=== PATIENT | male | born 1950 | race Caucasian/White ===

== ENCOUNTER 2019-07-28 20:35 | Emergency (ER) | payer OTHER ==
[~2019-07-28] VITALS: Ht 172.7 cm; Wt 97.5 kg
[2019-07-28] MEDS ORDERED: ANDROGEL2.5 GM (20:52)
[2019-07-28] MEDS ORDERED: AMARYL4 MG PO (20:53)
[2019-07-28] MEDS ORDERED: VITAMIN D2000 UNIT PO (20:53)
[2019-07-28] MEDS ORDERED: LIPITOR 20 MG T20 M1 PO (20:53)
[2019-07-28] MEDS ORDERED: VICTOZA0.6 MG/0.1 SUBQ (20:54)
[2019-07-28] MEDS ORDERED: SYNTHROID50 MCG PO (20:54)
[2019-07-28] MEDS ORDERED: LANTUS100 UNIT/M SUBQ (20:55)
[2019-07-28] MEDS ORDERED: TRAMADOL 50 MG50 MG PO (20:55)
[2019-07-28] MEDS ORDERED: CALCIUM 600 +1 EAC1 PO (20:55)
[2019-07-28] MEDS ORDERED: MEDROLDOSEPACK PO (23:07)
[2019-07-28] MEDS ORDERED: NORCO 5-325 TA1 EAC1 PO (23:07)
[2019-07-28 23:27] VITALS: BP 172/86
== END 2019-07-28 23:30 | disposition home or self-care (01) ==
LOC: M.ERS 20:35
DX: M47.897 Other spondylosis, lumbosacral region (principal); Z88.8 Allergy status to other drugs, medicaments and biological substances

== ENCOUNTER → 2019-09-14 | Outpatient (CLI) | payer OTHER ==
[~2019-09-14] MED LIST: AMARYL4 MG PO; ANDROGEL2.5 GM; CALCIUM 600 +1 EAC1 PO; LANTUS100 UNIT/M SUBQ; LIPITOR 20 MG T20 M1 PO; MEDROLDOSEPACK PO; NORCO 5-325 TA1 EAC1 PO; SYNTHROID50 MCG PO; TRAMADOL 50 MG50 MG PO; VICTOZA0.6 MG/0.1 SUBQ; VITAMIN D2000 UNIT PO
== END ==
LOC: M.RAD 10:29
DX: M47.816 Spondylosis without myelopathy or radiculopathy, lumbar region (principal); M25.78 Osteophyte, vertebrae; M51.37 Other intervertebral disc degeneration, lumbosacral region; M48.061 Spinal stenosis, lumbar region without neurogenic claudication; M47.814 Spondylosis without myelopathy or radiculopathy, thoracic region; M54.31 Sciatica, right side; M16.0 Bilateral primary osteoarthritis of hip; M21.851 Other specified acquired deformities of right thigh

== ENCOUNTER → 2020-04-05 | Outpatient (CLI) | payer OTHER | LOC: M.RAD 08:25 | DX: M47.812 Spondylosis without myelopathy or radiculopathy, cervical region (principal); R29.890 Loss of height ==

== ENCOUNTER → 2020-05-24 | Outpatient (CLI) | payer OTHER | LOC: M.CT 05-21 13:41 | PROVIDERS: ATTEND Internal Medicine | DX: I67.82 Cerebral ischemia (principal); I70.8 Atherosclerosis of other arteries; M25.78 Osteophyte, vertebrae; R42 Dizziness and giddiness; M48.02 Spinal stenosis, cervical region; R26.2 Difficulty in walking, not elsewhere classified ==

== ENCOUNTER 2020-10-01 12:14 | Emergency (ER) | payer OTHER ==
[~2020-10-01] VITALS: Ht 170.2 cm; Wt 95.3 kg
[2020-10-01] MEDS ORDERED: MULTIVITAMINS1 EAC7 PO (12:25)
[2020-10-01] MEDS ORDERED: LISINOPRIL-HCT1 EAC2 PO (12:26)
[2020-10-01] MEDS ORDERED: PRAVACHOL 20 MG20 M1 PO (12:26)
[2020-10-01] MEDS ORDERED: BASAGLAR K100 UNIT/1 SUBQ (12:26)
[2020-10-01] MEDS ORDERED: NABUMETONE 500500 M2 PO (12:26)
[2020-10-01] MEDS ORDERED: IPRATROPIU0.2 MG/1 M INH (12:27)
[2020-10-01] MEDS ORDERED: VICTOZA0.6 MG/0.1 (12:27)
[2020-10-01] MEDS ORDERED: LEVO-T75 MCG PO (12:27)
[2020-10-01 12:40] LABS: ABSOLUTE EOSINOPHILS 0.3 thou/uL (0.0-0.7); ABSOLUTE MONOCYTES 0.5 thou/uL (0.0-1.2); ABSOLUTE NEUTROPHILS 3.7 thou/uL (1.6-8.1); BASOPHILS 0.7 %; EOSINOPHILS 5.1 %; HEMATOCRIT 47.5 % (42.0-52.0); HEMOGLOBIN 16.2 gm/dL (14.0-18.0); LYMPHOCYTES 18.1 %; MCH 29.6 pg (26.0-34.0); MCHC 34.2 g/dL (28.0-37.0); MCV 86.5 fL (80.0-100.0); MONOCYTES 9.5 %; MPV 6.9 fl. (7.2-11.1); NUCLEATED RBCS 0 /100WBC; PLATELET COUNT* 158 thou/uL (150-400); POLYS 66.6 %; RBC 5.49 mil/uL (4.50-6.00); RDW-CV 14.4 % (10.5-14.5); WBC 5.6 thou/uL (4.0-11.0)
[2020-10-01 12:49] LABS: APTT 23.6 Seconds (25.0-31.3); PROTIME 11.1 Seconds (9.20-11.50)
[2020-10-01 12:57] LABS: CALCIUM 8.9 mg/dL (8.5-10.1); CREATININE 1.2 mg/dL (0.6-1.3); POTASSIUM 3.9 mmol/L (3.5-5.1)
[2020-10-01 13:04] LABS: ALBUMIN 3.9 g/dL (3.4-5.0); CK-MB MASS 3.2 ng/mL (<0.5-3.6); MAGNESIUM 1.6 mg/dL (1.8-2.4); TOTAL BILIRUBIN 1.5 mg/dL (<0.1-1.0); TOTAL PROTEIN 7.8 g/dL (6.4-8.2)
[2020-10-01] MEDS ORDERED: HYDROCHLOROTHIA25 M2 PO (15:04)
[2020-10-01] MEDS ORDERED: NORVASC5 MG PO (15:04)
[2020-10-01 15:26] VITALS: BP 162/101
--- NOTE | 2020-10-01 17:15 | EKG ---
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: J : 1950 Requested By: Alvarez Almeida Order Number: [id number] MD: Frakn Vazquez Measurements Intervals [place] Rate: 86 P: -12 [place]: 236 QRS: -36 QRSD: 89 T: 72 QT: 352 QTc: 421 Interpretive Statements Sinus rhythm Prolonged [place] interval Left axis deviation RSR' in V1 or V2, right VCD or RVH Baseline wander in lead(s) V5 No previous ECG available for comparison Electronically Signed On 10-01-2020 17:15:20 CAPACITY PLANNING ENGINEER by Frank Vazquez [email or web address] <ELECTRONICALLY SIGNED> By: Frank Vazquez MD, FACC 10/01/20 1715 1236 1236 Frank Vazquez MD, FACC /EPI
== END 2020-10-01 15:25 | disposition home or self-care (01) ==
LOC: M.ERS 12:14
PROVIDERS: Family Medicine
DX: I10 Essential (primary) hypertension (principal); R42 Dizziness and giddiness; Z79.899 Other long term (current) drug therapy; Z79.4 Long term (current) use of insulin; Z88.8 Allergy status to other drugs, medicaments and biological substances

== ENCOUNTER 2020-11-05 13:28 | Emergency (ER) | payer OTHER ==
[~2020-11-05] VITALS: Ht 167.6 cm; Wt 93.9 kg
[~2020-11-05 13:28] MED LIST changes: +BASAGLAR K100 UNIT/1 SUBQ; +HYDROCHLOROTHIA25 M2 PO; +IPRATROPIU0.2 MG/1 M INH; +LEVO-T75 MCG PO; +LISINOPRIL-HCT1 EAC2 PO; +MULTIVITAMINS1 EAC7 PO; +NABUMETONE 500500 M2 PO; +NORVASC5 MG PO; +PRAVACHOL 20 MG20 M1 PO; +VICTOZA0.6 MG/0.1
[2020-11-05 14:09] LABS: ABSOLUTE BASOPHILS 0.1 thou/uL (0.0-0.2); ABSOLUTE EOSINOPHILS 0.4 thou/uL (0.0-0.7); ABSOLUTE LYMPHOCYTES 1.2 thou/uL (0.8-5.3); ABSOLUTE MONOCYTES 0.5 thou/uL (0.0-1.2); ABSOLUTE NEUTROPHILS 3.7 thou/uL (1.6-8.1); EOSINOPHILS 6.2 %; HEMATOCRIT 44.2 % (42.0-52.0); HEMOGLOBIN 15.2 gm/dL (14.0-18.0); MCH 29.1 pg (26.0-34.0); MCHC 34.4 g/dL (28.0-37.0); MCV 84.6 fL (80.0-100.0); MONOCYTES 9.3 %; MPV 7.3 fl. (7.2-11.1); NUCLEATED RBCS 0 /100WBC; PLATELET COUNT* 146 thou/uL (150-400); POLYS 62.5 %; RBC 5.22 mil/uL (4.50-6.00); RDW-CV 14.7 % (10.5-14.5); WBC 5.9 thou/uL (4.0-11.0)
[2020-11-05 14:14] LABS: CALCIUM 9.1 mg/dL (8.5-10.1); CREATININE 1.3 mg/dL (0.6-1.3); POTASSIUM 3.4 mmol/L (3.5-5.1)
[2020-11-05 14:16] LABS: PROTIME 10.9 Seconds (9.20-11.50)
[2020-11-05 14:19] LABS: ALBUMIN 3.6 g/dL (3.4-5.0); TOTAL PROTEIN 7.8 g/dL (6.4-8.2)
[2020-11-05] MEDS ORDERED: VALIUM5 MG PO (15:49)
--- NOTE | 2020-11-05 16:48 | EKG ---
[place] [address] ELECTROCARDIOGRAM REPORT Name: NARA NELSON Room: [facility]#: [id number] Admission: 11/05/20 Attend Phys: Discharge: Date of : 46 Date of Service: 11/05/20 1339 Report #: [id number] THIS REPORT FOR: //name// [facility] ED Test Date: 2020-11-05 Test Time: 13:39:22 Pat Name: NARA NELSON Department: Room: Gender: Hoe Runner: DUTCH : 1950 Requested By: Izzy Martinez Order Number: [id number] MD: Frank Vazquez Measurements Intervals [place] Rate: 82 P: 17 [place]: 238 QRS: -31 QRSD: 86 T: 74 QT: 357 QTc: 417 Interpretive Statements Sinus rhythm Prolonged [place] interval Abnormal R-wave progression, early transition Left ventricular hypertrophy Compared to ECG 10/01/2020 12:36:44 Left ventricular hypertrophy now present Left-axis deviation no longer present Right ventricular hypertrophy no longer present Electronically Signed On 11-05-2020 16:48:17 SHIFT SUPERVISOR RN by Frank Vazquez [email or web address] <ELECTRONICALLY SIGNED> By: Frank Vazquez MD, FACC 11/05/20 1648 1339 1339 Frank Vazquez MD, FAC /EPI
[2020-11-05 16:53] VITALS: BP 170/100
== END 2020-11-05 16:54 | disposition home or self-care (01) ==
LOC: M.ERS 13:28
PROVIDERS: Personal Emergency Response Attendant
DX: S01.112A Laceration without foreign body of left eyelid and periocular area, initial encounter (principal); S16.1XXA Strain of muscle, fascia and tendon at neck level, initial encounter; S60.511A Abrasion of right hand, initial encounter; S80.211A Abrasion, right knee, initial encounter; Z20.828 Contact with and (suspected) exposure to other viral communicable diseases; Z88.8 Allergy status to other drugs, medicaments and biological substances; W22.8XXA Striking against or struck by other objects, initial encounter; Y93.89 Activity, other specified; Y92.89 Other specified places as the place of occurrence of the external cause; Y99.8 Other external cause status

== ENCOUNTER 2021-10-20 18:46 | Emergency (ER) | payer OTHER ==
[~2021-10-20] VITALS: Ht 167.6 cm; Wt 90.7 kg
[~2021-10-20 18:46] MED LIST changes: +VALIUM5 MG PO
[2021-10-20 20:20] LABS: ABSOLUTE BASOPHILS 0.1 thou/uL (0.0-0.2); ABSOLUTE EOSINOPHILS 0.4 thou/uL (0.0-0.7); ABSOLUTE LYMPHOCYTES 1.1 thou/uL (0.8-5.3); ABSOLUTE MONOCYTES 0.5 thou/uL (0.0-1.2); ABSOLUTE NEUTROPHILS 2.8 thou/uL (1.6-8.1); BASOPHILS 1.5 %; EOSINOPHILS 8.6 %; HEMATOCRIT 43.4 % (42.0-52.0); HEMOGLOBIN 15.1 gm/dL (14.0-18.0); LYMPHOCYTES 22.8 %; MCH 29.6 pg (26.0-34.0); MCHC 34.8 g/dL (28.0-37.0); MCV 85.1 fL (80.0-100.0); MONOCYTES 10.5 %; MPV 7.9 fl. (7.2-11.1); NUCLEATED RBCS 0 /100WBC; PLATELET COUNT* 189 thou/uL (150-400); POLYS 56.6 %; RDW-CV 14.2 % (10.5-14.5)
[2021-10-20 20:26] LABS: CALCIUM 9.7 mg/dL (8.5-10.1); CREATININE 1.1 mg/dL (0.6-1.3); POTASSIUM 3.5 mmol/L (3.5-5.1)
[2021-10-20 20:30] LABS: MAGNESIUM 1.8 mg/dL (1.8-2.4); TOTAL BILIRUBIN 1.2 mg/dL (<0.1-1.0); TOTAL PROTEIN 8.2 g/dL (6.4-8.2)
[2021-10-20 20:53] VITALS: BP 126/76
--- NOTE | 2021-10-21 12:17 | EKG ---
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 Manager: PR : 1950 Requested By: Emily Michael Order Number: [id number] MD: Edvin Colon Measurements Intervals [place] Rate: 78 P: -58 [place]: 275 QRS: -26 QRSD: 93 T: 61 QT: 367 QTc: 419 Interpretive Statements Sinus or ectopic atrial rhythm Prolonged [place] interval Borderline left axis deviation Abnormal R-wave progression, early transition Baseline wander in lead(s) I,III,aVL Compared to ECG 11/05/2020 13:39:22 Left ventricular hypertrophy no longer present Electronically Signed On 10-21-2021 12:17:23 ANALYTICAL SCIENCES DIRECTOR by Edvin Colon [email or web address] <ELECTRONICALLY SIGNED> By: Edvin Colon MD, FACC 10/21/21 1217 56 56 Edvin Colon MD, FAC /EPI
== END 2021-10-20 20:54 | disposition left against medical advice (07) ==
LOC: M.ERS 18:46
PROVIDERS: Emergency Medicine
DX: S09.93XA Unspecified injury of face, initial encounter (principal); Z20.822 Contact with and (suspected) exposure to COVID-19; R55 Syncope and collapse; Z79.899 Other long term (current) drug therapy; Z88.8 Allergy status to other drugs, medicaments and biological substances; W19.XXXA Unspecified fall, initial encounter; Y93.89 Activity, other specified; Y92.89 Other specified places as the place of occurrence of the external cause; Y99.8 Other external cause status

== ENCOUNTER → 2021-10-24 | Outpatient (CLI) | payer OTHER | LOC: M.CT 12:59 | PROVIDERS: ATTEND Registered Nurse Diabetes Educator | DX: J84.10 Pulmonary fibrosis, unspecified (principal); I70.0 Atherosclerosis of aorta; I25.10 Atherosclerotic heart disease of native coronary artery without angina pectoris; M47.817 Spondylosis without myelopathy or radiculopathy, lumbosacral region; R91.8 Other nonspecific abnormal finding of lung field; R40.20 Unspecified coma; Z90.49 Acquired absence of other specified parts of digestive tract; W19.XXXA Unspecified fall, initial encounter ==

== ENCOUNTER 2021-11-04 10:26 | Emergency (ER) | payer OTHER ==
[~2021-11-04] VITALS: Ht 167.6 cm; Wt 90.7 kg
[2021-11-04 11:56] LABS: ABSOLUTE BASOPHILS 0.1 thou/uL (0.0-0.2); ABSOLUTE EOSINOPHILS 0.1 thou/uL (0.0-0.7); ABSOLUTE LYMPHOCYTES 0.5 thou/uL (0.8-5.3); ABSOLUTE MONOCYTES 0.1 thou/uL (0.0-1.2); ABSOLUTE NEUTROPHILS 3.8 thou/uL (1.6-8.1); BASOPHILS 1.1 %; EOSINOPHILS 2.6 %; HEMATOCRIT 43.1 % (42.0-52.0); HEMOGLOBIN 14.8 gm/dL (14.0-18.0); LYMPHOCYTES 11.5 %; MCH 29.6 pg (26.0-34.0); MCHC 34.3 g/dL (28.0-37.0); MCV 86.4 fL (80.0-100.0); MONOCYTES 3.2 %; MPV 7.8 fl. (7.2-11.1); NUCLEATED RBCS 0 /100WBC; PLATELET COUNT* 149 thou/uL (150-400); POLYS 81.6 %; RBC 4.99 mil/uL (4.50-6.00); RDW-CV 14.5 % (10.5-14.5); WBC 4.6 thou/uL (4.0-11.0)
[2021-11-04 12:32] LABS: CALCIUM 9.2 mg/dL (8.5-10.1); CREATININE 1.3 mg/dL (0.6-1.3); POTASSIUM 4.3 mmol/L (3.5-5.1)
[2021-11-04 12:35] VITALS: BP 141/78
[2021-11-04 12:36] LABS: ALBUMIN 4.1 g/dL (3.4-5.0); TOTAL BILIRUBIN 1.4 mg/dL (<0.1-1.0); TOTAL PROTEIN 7.8 g/dL (6.4-8.2)
--- NOTE | 2021-11-04 12:57 | EKG ---
[place] [address] ELECTROCARDIOGRAM REPORT Name: NARA NELSON Room: [facility]#: [id number] Admission: 11/04/21 Attend Phys: Discharge: 11/04/21 Date of : 46 Date of Service: 11/04/21 1043 Report #: [id number] THIS REPORT FOR: //name// [facility] ED Test Date: 2021-11-04 Test Time: 10:43:16 Pat Name: NARA NELSON Department: Room: Gender: Fork Operator: KELSEY : 1950 Requested By: Alvarez Almeida Order Number: [id number] MD: Frank Vazquez Measurements Intervals [place] Rate: 70 P: -71 [place]: 251 QRS: -29 QRSD: 89 T: 57 QT: 381 QTc: 412 Interpretive Statements Sinus or ectopic atrial rhythm Atrial premature complexes Prolonged [place] interval Borderline left axis deviation Abnormal R-wave progression, early transition Compared to ECG 10/20/2021 18:57:27 Atrial premature complex(es) now present Electronically Signed On 11-04-2021 12:57:04 SECTION PLOTTER OPERATOR by Frank Vazquez [email or web address] <ELECTRONICALLY SIGNED> By: Frank Vazquez MD, FACC 11/04/21 1257 1043 1043 Frank Vazquez MD, FACC /EPI
== END 2021-11-04 12:36 | disposition home or self-care (01) ==
LOC: M.ERS 10:26
PROVIDERS: Family Medicine
DX: R07.89 Other chest pain (principal); Z98.890 Other specified postprocedural states; Z88.8 Allergy status to other drugs, medicaments and biological substances; Z79.899 Other long term (current) drug therapy; Z79.4 Long term (current) use of insulin

== ENCOUNTER → 2022-01-02 | Outpatient (CLI) | payer OTHER | LOC: M.RAD 11:17 | PROVIDERS: ATTEND Registered Nurse Diabetes Educator | DX: M16.0 Bilateral primary osteoarthritis of hip (principal); M47.816 Spondylosis without myelopathy or radiculopathy, lumbar region; M47.818 Spondylosis without myelopathy or radiculopathy, sacral and sacrococcygeal region ==